=== PATIENT | female | born 1955 | race Asian ===

== ENCOUNTER 2017-06-16 14:17 | Outpatient (CLI) | payer SELFPAY | END 2017-06-16 14:18 | disposition critical access hospital (66) | LOC: EMS 14:17 | PROVIDERS: ATTEND Surgery | DX: S81.802A Unspecified open wound, left lower leg, initial encounter (principal); W11.XXXA Fall on and from ladder, initial encounter; Y92.830 Public park as the place of occurrence of the external cause | CPT/HCPCS: A0425; A0427 ==

== ENCOUNTER 2017-06-16 14:35 | Emergency (ER) | payer SELFPAY ==
[2017-06-16] MEDS ORDERED: ceFAZolin 1 GM in SODIUM CHLORIDE 0.9% MINIBAG 100 ML IV STA (14:40)
[2017-06-16] MEDS ORDERED: ONDANSETRON 4 MG/2 ML VIAL IVP STA (14:40)
[2017-06-16] MEDS ORDERED: MORPHINE 2 MG/ML SYRINGE IVP STA ×4 (14:40→20:59)
--- NOTE | 2017-06-16 14:44 | ED Physician Documentation ---
History of Present Illness - Stated complaint Stated Complaint: FALL - OPEN FX - Chief complaint Chief Complaint: Ext Problem - Additonal information Additional information: hx from pt via family translating 61 female visiting from [place] Pmhx HTN on an unknown BP med [facility] and missed the last step on stairs/ladder while carrying her great niece twisted and tried to not drop the child and slipped down a few more rungs/steps landing awkwardly on her leg and suffering an open fx of her left leg just below the knee family reports seeing bone protruding from the wound but it has since reduced no head neck chest abd or other injury per family ems and pt Review of Systems Cardiac: denies: Chest pain / pressure GI: denies: Abdominal Pain Skin: reports: Laceration (s) Musculoskeletal: reports: Extremity pain Neurologic: denies: Focal weakness, Numbness Endocrine: denies: Easy bruising / bleeding PD PAST MEDICAL HISTORY - Present Medications Home Medications: Ambulatory Orders Medication Instructions Recorded Confirmed Hbp Med 06/16/17 - Allergies Allergies/Adverse Reactions: Allergies Allergy/AdvReac Type Severity Reaction Status Date / Time No Known Drug Allergies Allergy Verified 06/16/17 14:42 PD ED PE NORMAL - Vitals Vital signs reviewed: Yes - HEENT HEENT: Atraumatic - Cardiac Cardiac: RRR - Respiratory Respiratory: No respiratory distress - Abdomen Abdomen: Soft, Non tender - Extremities Extremities: Other (grossly swollen and deformed prox L tib fib with open wound but no protruding bone at this time, strong pedal pulse, brisk cap refill, + sensation to all of foot and able to move all her toes) Results - Vitals Vitals: Vital Signs - 24 hr 06/16/17 06/16/17 06/16/17 14:36 14:53 15:43 Temperature 37.0 C Heart Rate 81 95 78 Respiratory 20 16 16 Rate Blood Pressure 147/81 H 147/81 H 125/65 O2 Saturation 95 96 97 06/16/17 06/16/17 06/16/17 17:03 19:13 19:19 Temperature 36.2 C L Heart Rate 85 86 Respiratory 14 16 Rate Blood Pressure 154/78 H 118/104 H O2 Saturation 97 97 06/16/17 06/16/17 19:29 19:52 Temperature 37.0 C Heart Rate 82 Respiratory 16 Rate Blood Pressure 138/74 H O2 Saturation 97 Oxygen O2 Source Room air - Labs Labs: Laboratory Tests 06/16/17 06/16/17 16:10 16:10 WBC 13.6 H RBC 4.43 Hgb 12.9 Hct 38.9 MCV 87.8 MCH 29.1 MCHC 33.1 RDW 12.6 Plt Count 246 MPV 6.6 L Neut # 10.4 H Lymph # 2.4 Jack # 0.7 Eos # 0.1 Baso # 0.0 Absolute Nucleated RBC 0.00 Nucleated RBCs 0.0 Sodium 138 Potassium 3.7 Chloride 101 Carbon Dioxide 27 Anion Gap 10.0 BUN 19 Creatinine 0.7 Estimated GFR (MDRD) 85 L Glucose 151 H Calcium 8.6 - Rads (name of study) tib fib Radiology: See rad report (markedly comminuted prximal left tibial fx involving prox diaphysis, metaphysis, and lateral tibial plateau with depression/ displacement, comminuted proximal left fibular fracture) PD MEDICAL DECISION MAKING - ED course ED course: pt seen by [facility] ortho Dr Park who advised that [facility] does not have the appropriate hardward to fix this injury and would not able to procure same before tomorrow and recommends transfer to a tertiary care facility so called [facility] and spoke to transfer center who had ortho review the images and then reprted to me [facility] severe for their facility and rec [place] [facility] [place] [facility] and spoke to ER doc who did accept pt in transfer and I confirmed bed availability in ER with transfer RN pt was medicated as needed, ancef and tdap given, wound was irrigated and dressed with moist sterile gauze and leg was immobilized in a knee brace delay waiting for transport as [facility] ambulances were not available so [facility] had to be called Departure - Departure Disposition: 02 Transfer Acute Care Hosp Clinical Impression: Open fracture tibial plateau Qualifiers: Encounter type: initial encounter Laterality: left Open fracture of left tibia and fibula Qualifiers: Open fracture type: open type I or II Condition: Good
--- NOTE | 2017-06-16 15:22 | XRAY Preliminary Report ---
Exam: XR Tib/Fib LT IMPRESSION: 1. Markedly comminuted proximal left tibial fracture involving proximal diaphysis, metaphysis and lat eral tibial plateau with depression/displacement detailed above. Consider CT to further characterize. 2. Comminuted proximal left fibular fracture. [facility] SITE ID: [id number]
--- NOTE | 2017-06-16 15:24 | XRAY Report ---
EXAM: LEFT TIBIA/FIBULA RADIOGRAPHY EXAM DATE: 06/16/2017 03:11 PM. CLINICAL HISTORY: Open prox tib fib fx. COMPARISON: None. TECHNIQUE: 2 views. FINDINGS: Bones: Markedly comminuted proximal left tibial fracture involving proximal diaphysis, metaphysis an d lateral tibial plateau. Intraarticular fracture extension and lateral tibial plateau depression. 14 degree apex anterior angulation. 1.5 cm posterior displacement of dominant proximal tibial segment. A 6 x 2.6 cm butterfly fragment along the lateral proximal tibial diaphysis and metaphysis is displac ed by 2 cm. Comminuted proximal left fibular fracture. Joints: The visualized knee and ankle joints are normal. No effusions. Soft Tissues: Normal. No soft tissue swelling. IMPRESSION: 1. Markedly comminuted proximal left tibial fracture involving proximal diaphysis, metaphysis and lat eral tibial plateau with depression/displacement detailed above. Consider CT to further characterize. 2. Comminuted proximal left fibular fracture. [facility] Referring Provider Line: [phone] SITE ID: [id number]
[2017-06-16] MEDS ORDERED: ceFAZolin 1 GM VIAL ONE ×2 (15:34→20:40)
[2017-06-16] MEDS ORDERED: MORPHINE 2 MG/ML SYRINGE ONE ×4 (15:34→21:07)
[2017-06-16] MEDS ORDERED: SODIUM CHLORIDE FLUSH 0.9% 10 ML SYRINGE IVP ONE ×2 (15:35→17:04)
[2017-06-16] MEDS ORDERED: ONDANSETRON 4 MG/2 ML VIAL ONE (15:35)
--- NOTE | 2017-06-16 16:12 | PROVIDER PROGRESS NOTE ---
Subjective - Prog Note Date Prog Note Date: 06/16/17 Prog Note Time: 16:09 - Subjective Subjective: Patient visiting from [facility] a fall off the last step of a ladder at [facility], sustaining an open cominnitued left proximal tibia fracture. No LOC or other injury. No prior fracture. Last ate at about 1330. Objective - Vital Signs/Intake & Output Vital Signs: Vital Signs x48h Pulse Resp BP Pulse Ox 06/16/17 15:43 78 16 125/65 97 06/16/17 14:53 95 16 147/81 H 96 06/16/17 14:36 81 20 147/81 H 95 - Diagnostic Imaging Diagnostic Imaging Comments: XR show3 a comminuted, segmental proximal tibia fracture - Other Results/Comments Other Results/Comments: EXAM: Small open wound over tibial tubercle. 1+ swelling of proximal calf. Moves toes well. Sensation intact. Good cap filling Assessment/Plan - Problem List (1) Open fracture of left tibia and fibula Impression: PLAN: Will need surgical irrigation and debridement and probable ORIF of fracture tonight. Per patient's family request. will stabilize fracture in ED and arrange transfer to [facility] treatment. Will place a betadince dressing over wound and place leg in knee immobilizer for transfer. Qualifiers: Open fracture type: open type I or II
[2017-06-16 16:21] LABS: BASOPHILS % (AUTO) 0.3 %; EOSINOPHILS # (AUTO) 0.1 10^3/uL (0.0-0.7); EOSINOPHILS % (AUTO) 0.5 %; HCT - HEMATOCRIT 38.9 % (37.0-47.0); HGB - HEMOGLOBIN 12.9 g/dL (12.0-16.0); LYMPHOCYTES # (AUTO) 2.4 10^3/uL (1.5-3.5); LYMPHOCYTES % (AUTO) 17.4 %; MEAN CORPUSCULAR HEMOGLOBIN 29.1 pg (27.0-31.0); MEAN CORPUSCULAR HGB CONC 33.1 g/dL (32.0-36.0); MEAN CORPUSCULAR VOLUME 87.8 fL (81.0-99.0); MEAN PLATELET VOLUME 6.6 fL (7.9-10.8); MONOCYTES # (AUTO) 0.7 10^3/uL (0.0-1.0); MONOCYTES % (AUTO) 5.5 %; NEUTROPHILS # (AUTO) 10.4 10^3/uL (1.5-6.6); NEUTROPHILS % (AUTO) 76.3 %; RED BLOOD COUNT 4.43 10^6/uL (4.20-5.40); RED CELL DISTRIBUTION WIDTH 12.6 % (12.0-15.0); UNCORRECTED WHITE BLOOD COUNT 13.6 x10^3/uL; WHITE BLOOD COUNT 13.6 x10^3/uL (4.8-10.8)
[2017-06-16 16:26] LABS: CALCIUM 8.6 mg/dL (8.5-10.3); CREATININE 0.7 mg/dL (0.4-1.0); POTASSIUM 3.7 mmol/L (3.5-5.0)
[2017-06-16] MEDS ORDERED: ceFAZolin 1 GM VIAL IVP STA (20:32)
[2017-06-16] MEDS ORDERED: SODIUM CHLORIDE 0.9% MINIBAG 100 ML IV ONE (20:40)
[2017-06-16 21:15] VITALS: BP 131/73
== END 2017-06-16 21:16 | disposition short-term general hospital (02) ==
LOC: ED 14:35
DX: S82.142B Displaced bicondylar fracture of left tibia, initial encounter for open fracture type I or II (principal); X50.1XXA Overexertion from prolonged static or awkward postures, initial encounter; W18.40XA Slipping, tripping and stumbling without falling, unspecified, initial encounter; Y93.01 Activity, walking, marching and hiking; Y92.830 Public park as the place of occurrence of the external cause; I10 Essential (primary) hypertension
CPT/HCPCS: 29530; 36415; 73590; 80048; 85025; 96365; 96375; 96376; 99284; 99285; J2270